=== PATIENT | male | born 1995 | race Caucasian/White ===

== ENCOUNTER 2018-06-11 09:16 | Emergency (ER) | payer MEDICAID ==
--- NOTE | 2018-06-11 11:55 | EDM.PDOC ---
ED HPI GENERAL MEDICAL PROBLEM - General Chief Complaint: ENT Problem Stated Complaint: SORE THROAT Time Seen by Provider: 06/11/18 09:36 Source of Information: Reports: Patient History Limitations: Reports: No Limitations - History of Present Illness INITIAL COMMENTS - FREE TEXT/NARRATIVE: History of present illness: []Patient has had 4 days of sore throat with chills. He has had tonsillitis in the past. Patient has no difficulty tolerating fluids, swallowing or shortness of breath or speaking. Review of systems: As per history of present illness and below otherwise all systems reviewed and negative. Past medical history: As per history of present illness and as reviewed below otherwise noncontributory. Surgical history: As per history of present illness and as reviewed below otherwise noncontributory. Social history: No reported history of drug or alcohol abuse. Family history: As per history of present illness and as reviewed below otherwise noncontributory. Physical exam: General: Well developed, well nourished in NAD HEENT: Atraumatic, normocephalic, pupils reactive, negative for conjunctival pallor or scleral icterus, mucous membranes moist, throat erythematous with white patches, symmetrical with deviation neck supple, nontender, trachea midline. No stridor Lungs: Clear to auscultation, breath sounds equal bilaterally, chest nontender. Heart: S1S2, regular, negative for clicks, rubs, or JVD. Abdomen: NABS, Soft, nondistended, nontender. Negative for masses or hepatosplenomegaly. Negative for costovertebral tenderness. Pelvis: Stable nontender. Genitourinary: Deferred. Rectal: Deferred. Extremities: Atraumatic, negative for cords or calf pain. Neurovascular unremarkable. Neuro: Awake, alert, oriented. Cranial nerves II through XII unremarkable. Cerebellum unremarkable. Motor and sensory unremarkable throughout. Exam nonfocal. Skin:warm and dry Diagnostics: Strep negative, influenza negative, Monospot negative Therapeutics: None ED Course: Stable Impression: Acute pharyngitis Prescriptions: Medrol Dosepak Plan: Take meds as directed, follow up with your primary care physician, return to ER if symptoms worsen or change. Definitive disposition and diagnosis as appropriate pending reevaluation and review of above. Throat Pain Score (Numeric/FACES): 3 - Related Data Allergies Allergy/AdvReac Type Severity Reaction Status Date / Time codeine Allergy Hives Verified 06/11/18 09:36 Home Meds: Home Meds methylPREDNISolone [Medrol] 4 mg PO ASDIRECTED #1 dosepk 06/11/18 [Rx] Past Medical History - Past Health History Medical/Surgical History: Denies Medical/Surgical History HEENT History: Reports: None Cardiovascular History: Reports: None Respiratory History: Reports: None Gastrointestinal History: Reports: None Genitourinary History: Reports: None Musculoskeletal History: Reports: None Neurological History: Reports: None Psychiatric History: Reports: None Endocrine/Metabolic History: Reports: None Hematologic History: Reports: None Immunologic History: Reports: None Oncologic (Cancer) History: Reports: None Dermatologic History: Reports: None - Infectious Disease History Infectious Disease History: Reports: None - Past Surgical History Head Surgeries/Procedures: Reports: None Male Surgical History: Reports: None Social & Family History - Family History Family Medical History: Noncontributory - Tobacco Use Smoking Status *Q: Current Every Day Smoker Years of Tobacco use: 10 Packs/Tins Daily: 0.5 - Caffeine Use Caffeine Use: Reports: None - Recreational Drug Use Recreational Drug Use: No ED ROS ENT - Review of Systems Review Of Systems: ROS reveals no pertinent complaints other than HPI. ED EXAM, ENT - Physical Exam Exam: See Below (See history of present illness) Course - Vital Signs Last Recorded V/S: Last Vital Signs Temp 97 F 06/11/18 09:35 Pulse 86 06/11/18 09:35 Resp 18 06/11/18 09:35 BP 127/61 06/11/18 09:35 Pulse Ox 97 06/11/18 09:35 - Orders/Labs/Meds Orders: Active Orders 24 hr Category Date Time Status CULTURE STREP A CONFIRMATION [RM] Stat Lab 06/11/18 07:44 Results STREP SCRN A RAPID W CULT CONF [RM] Stat Lab 06/11/18 07:44 Results Labs: Laboratory Tests 06/11/18 Range/Units 11:06 Monoscreen NEGATIVE (NEG) Departure - Departure Time of Disposition: 12:01 Disposition: Home, Self-Care 01 Condition: Good Clinical Impression: Acute pharyngitis Qualifiers: Pharyngitis/tonsillitis etiology: unspecified etiology Qualified Code(s): J02.9 - Acute pharyngitis, unspecified - Discharge Information *PRESCRIPTION DRUG MONITORING PROGRAM REVIEWED*: No *COPY OF PRESCRIPTION DRUG MONITORING REPORT IN PATIENT YAQUELIN: No Prescriptions: methylPREDNISolone [Medrol] 4 mg PO ASDIRECTED #1 dosepk Referrals: PCP,Unknown [Primary Care Provider] - Forms: ED Department Discharge Additional Instructions: The following information is given to patients seen in the emergency department who are being discharged to home. This information is to outline your options for follow-up care. We provide all patients seen in our emergency department with a follow-up referral. The need for follow-up, as well as the timing and circumstances, are variable depending upon the specifics of your emergency department visit. If you don't have a primary care physician on staff, we will provide you with a referral. We always advise you to contact your personal physician following an emergency department visit to inform them of the circumstance of the visit and for follow-up with them and/or the need for any referrals to a consulting specialist. The emergency department will also refer you to a specialist when appropriate. This referral assures that you have the opportunity for follow-up care with a specialist. All of these measure are taken in an effort to provide you with optimal care, which includes your follow-up. Under all circumstances we always encourage you to contact your private physician who remains a resource for coordinating your care. When calling for follow-up care, please make the office aware that this follow-up is from your recent emergency room visit. If for any reason you are refused follow-up, please contact the [facility] Emergency Department at and asked to speak to the emergency department charge nurse. Take meds as directed, follow up with your primary care physician, return to ER if symptoms worsen or change. [facility] [address] [place] [id number] - My Orders Last 24 Hours: My Active Orders 06/11/18 07:44 CULTURE STREP A CONFIRMATION [RM] Stat STREP SCRN A RAPID W CULT CONF [RM] Stat - Assessment/Plan Last 24 Hours: My Active Orders 06/11/18 07:44 CULTURE STREP A CONFIRMATION [RM] Stat STREP SCRN A RAPID W CULT CONF [RM] Stat
== END 2018-06-11 12:15 | disposition home or self-care (01) ==
LOC: MW.ED 09:16
DX: J02.9 Acute pharyngitis, unspecified (principal); Z88.5 Allergy status to narcotic agent; F17.210 Nicotine dependence, cigarettes, uncomplicated
CPT/HCPCS: 36415; 86308; 87081; 87804; 87880-QW; 99283

== ENCOUNTER 2018-07-03 11:09 | Emergency (ER) | payer OTHER, MEDICAID ==
[2018-07-03] MEDS ORDERED: Diphtheria,Pertussis(Acell),Tetanus Vaccine 0.5 ML Syringe IM ONE (11:13)
[2018-07-03] MEDS ORDERED: Sodium Chloride 0.9% 1,000 ML IV ONE (11:13)
[2018-07-03] MEDS ORDERED: Lidocaine 1% 10 ML MDV INJECT ONE (11:14)
--- NOTE | 2018-07-03 11:41 | CR ---
EXAMINATION: Left tibia and fibula HISTORY: Laceration COMPARISON: None TECHNIQUE: 2 views FINDINGS/IMPRESSION: There is a soft tissue laceration noted along the medial aspect of the mid calf without an acute osseous abnormality identified. Bone mineralization visualized joint spaces are grossly preserved.
[2018-07-03] MEDS ORDERED: Bacitracin Oint 1 GM U/D Packet TOP ONE (11:53)
--- NOTE | 2018-07-03 11:54 | EDM.PDOC ---
ED HPI GENERAL MEDICAL PROBLEM - General Chief Complaint: Lower Extremity Injury/Pain Stated Complaint: LT LEG INJ Time Seen by Provider: 07/03/18 11:16 Source of Information: Reports: Patient History Limitations: Reports: No Limitations - History of Present Illness INITIAL COMMENTS - FREE TEXT/NARRATIVE: HISTORY AND PHYSICAL: History of present illness: Patient is a 22-year-old male presents to the ED today with concern of a calf laceration that occurred while at work. Patient states his cast was cut with a power tool. Patient states he immediately wrapped up his leg and people from work brought him to the ED. Patient states he is not up to date on his vaccines. Patient denies any other prior injury or trauma to the leg. Patient denies head injury. Patient denies fever, chills, chest pain, shortness of breath, or cough. Denies headache, neck stiff ness, change in vision, syncope, or near syncope. Denies nausea, vomiting, abdominal pain, diarrhea, constipation, or dysuria. Has not noted any blood in urine or stool. Patient has been eating and drinking appropriately. Review of systems: As per history of present illness and below otherwise all systems reviewed and negative. Past medical history: As per history of present illness and as reviewed below otherwise noncontributory. Surgical history: As per history of present illness and as reviewed below otherwise noncontributory. Social history: See social history for further information Family history: As per history of present illness and as reviewed below otherwise noncontributory. Physical exam: General: Patient is alert, oriented, and in no acute distress. Patient laying comfortably on exam table. HEENT: Atraumatic, normocephalic, pupils equal and reactive bilaterally, negative for conjunctival pallor or scleral icterus, mucous membranes moist, TMs normal bilaterally, throat clear, neck supple, nontender, trachea midline. No drooling or trismus noted. No meningeal signs. No hot potato voice noted. Lungs: Clear to auscultation, breath sounds equal bilaterally, chest nontender. Heart: S1S2, regular rate and rhythm without overt murmur Abdomen: Soft, nondistended, nontender. Negative for masses or hepatosplenomegaly. Negative for costovertebral tenderness. Pelvis: Stable nontender. Genitourinary: Deferred. Rectal: Deferred. Skin: See extremities. Otherwise, Intact, warm, dry. No lesions or rashes noted. Extremities: Negative for cords or calf pain. Neurovascular unremarkable. There is a 5 cm laceration of the medial calf with exposed subcutaneous tissue. There is no damage to any muscle or tendons. Patient has full range of motion and strength of all joints of bilateral lower extremities. Patient had the moderate amount of blood on his close but upon arrival to the ED there has been minimal blood loss of the laceration. Capillary refill less than 2 seconds. Neuro: Awake, alert, oriented. Cranial nerves II through XII unremarkable. Cerebellum unremarkable. Motor and sensory unremarkable throughout. Exam nonfocal. Notes: Dr. Hooks was directly involved in patients care. Discussed the importance of follow-up with a primary care provider. Voices understanding and is agreeable to plan of care. Denies any further questions or concerns at this time. Diagnostics: CBC, CMP, Tib/Fib XR Therapeutics: Lidocaine, sutures, tdap, saline, bacitracin, sterile dressing Prescription: None Impression: Calf laceration Plan: 1. Keep the area clean and dry. Continue to monitor for signs of infection as discussed. Sutures to be removed in 7-10 days. 2. Tylenol and/or ibuprofen as directed and as needed for pain management and discomfort. 3. Please follow-up with your primary care provider as discussed. Return to the ED as needed and as discussed. Definitive disposition and diagnosis as appropriate pending reevaluation and review of above. - Related Data Allergies Allergy/AdvReac Type Severity Reaction Status Date / Time codeine Allergy Hives Verified 06/11/18 09:36 Home Meds: Home Meds methylPREDNISolone [Medrol] 4 mg PO ASDIRECTED #1 dosepk 06/11/18 [Rx] Past Medical History - Past Health History Medical/Surgical History: Denies Medical/Surgical History HEENT History: Reports: None Cardiovascular History: Reports: None Respiratory History: Reports: None Gastrointestinal History: Reports: None Genitourinary History: Reports: None Musculoskeletal History: Reports: None Neurological History: Reports: None Psychiatric History: Reports: None Endocrine/Metabolic History: Reports: None Hematologic History: Reports: None Immunologic History: Reports: None Oncologic (Cancer) History: Reports: None Dermatologic History: Reports: None - Infectious Disease History Infectious Disease History: Reports: None - Past Surgical History Head Surgeries/Procedures: Reports: None Male Surgical History: Reports: None Social & Family History - Family History Family Medical History: Noncontributory - Caffeine Use Caffeine Use: Reports: None Review of Systems - Review of Systems Review Of Systems: ROS reveals no pertinent complaints other than HPI. ED EXAM, GENERAL - Physical Exam Exam: See Below (See dictation) ED TRAUMA EXTREMITY PROCEDURES - Laceration/Wound Repair Left Medial Leg Lac/Wound Length In cm: 5 Appearance: Subcutaneous, Linear, Clean Distal NVT: Neuro & Vascular Intact, No Tendon Injury Anesthetic Type: Local Local Anesthesia - Lidocaine (Xylocaine): 1% Plain Local Anesthetic Volume: Other (10) Skin Prep: Chlorhexidine (Hibiciens), Providone-Iodine (Betadine) Saline Irrigation (cc's): 25 Exploration/Debridement/Repair: Wound Explored, In a Bloodless Field, Explored to Base, No Foreign Material Found Closed With: Sutures Suture Size: 4-0 # of Sutures: 8 Suture Type: Nylon, Interrupted Drain Placement: No Sterile Dressing Applied: Nurse Tetanus Status Addressed: Yes Complications: No Course - Orders/Labs/Meds Orders: Active Orders 24 hr Category Date Time Status Vaccines to be Administered [RC] PER UNIT ROUTINE Care 07/03/18 11:13 Active COMPREHENSIVE METABOLIC PN,CMP [CHEM] Stat Lab 07/03/18 11:05 Received Sodium Chloride 0.9% [Normal Saline] 1,000 ml Med 07/03/18 11:13 Active IV STAT Medication Orders Sodium Chloride (Normal Saline) 1,000 mls @ 999 mls/hr IV STAT ONE Stop: 07/03/18 12:13 Last Admin: 07/03/18 11:20 Dose: 999 mls/hr Labs: Laboratory Tests 07/03/18 Range/Units 11:05 WBC 7.03 (4.0-11.0) K/uL RBC 4.92 (4.50-5.90) M/uL Hgb 16.3 (13.0-17.0) g/dL Hct 46.9 (38.0-50.0) % MCV 95.3 (80.0-98.0) fL MCH 33.1 H (27.0-32.0) pg MCHC 34.8 (31.0-37.0) g/dL RDW Std Deviation 45.8 (28.0-62.0) fl RDW Coeff of Ashlie 13 (11.0-15.0) % Plt Count 238 (150-400) K/uL MPV 11.00 (7.40-12.00) fL Neut % (Auto) 56.9 (48.0-80.0) % Lymph % (Auto) 34.4 (16.0-40.0) % Campbell % (Auto) 6.3 (0.0-15.0) % Eos % (Auto) 1.8 (0.0-7.0) % Baso % (Auto) 0.6 (0.0-1.5) % Neut # (Auto) 4.0 (1.4-5.7) K/uL Lymph # (Auto) 2.4 (0.6-2.4) K/uL Campbell # (Auto) 0.4 (0.0-0.8) K/uL Eos # (Auto) 0.1 (0.0-0.7) K/uL Baso # (Auto) 0.0 (0.0-0.1) K/uL Nucleated RBC % 0.0 /100WBC Nucleated RBCs # 0 K/uL Meds: Medications Generic Name Dose Route Start Last Admin Trade Name Freq PRN Reason Stop Dose Admin Sodium Chloride 1,000 mls @ 999 mls/hr 07/03/18 11:13 07/03/18 11:20 Normal Saline IV 07/03/18 12:13 999 mls/hr STAT ONE Administration Discontinued Medications Generic Name Dose Route Start Last Admin Trade Name Freq PRN Reason Stop Dose Admin Bacitracin 1 dose 07/03/18 11:53 Bacitracin Oint 1 Gm TOP 07/03/18 11:54 ONETIME ONE Diphtheria/Tetanus/Acell Pertussis 0.5 ml 07/03/18 11:13 07/03/18 11:20 Adacel IM 07/03/18 11:14 0.5 ml .ONCE ONE Administration Lidocaine HCl Confirm 07/03/18 11:21 07/03/18 12:01 Xylocaine-Mpf 1% Administered 07/03/18 11:22 Not Given Dose 10 mls @ as directed .ROUTE .STK-MED ONE Lidocaine HCl 10 ml 07/03/18 11:14 07/03/18 12:01 Xylocaine 1% INJECT 07/03/18 11:15 10 ml ONETIME ONE Administration Departure - Departure Time of Disposition: 11:56 Disposition: Home, Self-Care 01 Clinical Impression: Laceration of calf Qualifiers: Encounter type: initial encounter Laterality: left Qualified Code(s): S81.812A - Laceration without foreign body, left lower leg, initial encounter - Discharge Information Instructions: Laceration Care, Adult, [id number] Referrals: PCP,None [Primary Care Provider] - Forms: ED Department Discharge Additional Instructions: The following information is given to patients seen in the emergency department who are being discharged to home. This information is to outline your options for follow-up care. We provide all patients seen in our emergency department with a follow-up referral. The need for follow-up, as well as the timing and circumstances, are variable depending upon the specifics of your emergency department visit. If you don't have a primary care physician on staff, we will provide you with a referral. We always advise you to contact your personal physician following an emergency department visit to inform them of the circumstance of the visit and for follow-up with them and/or the need for any referrals to a consulting specialist. The emergency department will also refer you to a specialist when appropriate. This referral assures that you have the opportunity for follow-up care with a specialist. All of these measure are taken in an effort to provide you with optimal care, which includes your follow-up. Under all circumstances we always encourage you to contact your private physician who remains a resource for coordinating your care. When calling for follow-up care, please make the office aware that this follow-up is from your recent emergency room visit. If for any reason you are refused follow-up, please contact the [facility] Emergency Department at and asked to speak to the emergency department charge nurse. [facility] [address] [place] [address] [id number] [address] [id number] 1. Keep the area clean and dry. Continue to monitor for signs of infection as discussed. Sutures to be removed in 7-10 days. 2. Tylenol and/or ibuprofen as directed and as needed for pain management and discomfort. 3. Please follow-up with your primary care provider as discussed. Return to the ED as needed and as discussed. - My Orders Last 24 Hours: My Active Orders 07/03/18 11:05 COMPREHENSIVE METABOLIC PN,CMP [CHEM] Stat 07/03/18 11:13 Vaccines to be Administered [RC] PER UNIT ROUTINE Sodium Chloride 0.9% [Normal Saline] 1,000 ml IV STAT - Assessment/Plan Last 24 Hours: My Active Orders 07/03/18 11:05 COMPREHENSIVE METABOLIC PN,CMP [CHEM] Stat 07/03/18 11:13 Vaccines to be Administered [RC] PER UNIT ROUTINE Sodium Chloride 0.9% [Normal Saline] 1,000 ml IV STAT
[2018-07-03 12:19] LABS: CHLORIDE,CL 102 mmol/L (98-107); SODIUM,NA 139 mmol/L (136-148)
== END 2018-07-03 12:21 | disposition home or self-care (01) ==
LOC: MW.ED 11:09
DX: S81.812A Laceration without foreign body, left lower leg, initial encounter (principal); Z23 Encounter for immunization; W26.8XXA Contact with other sharp object(s), not elsewhere classified, initial encounter; Y99.0 Civilian activity done for income or pay
CPT/HCPCS: 12002; 36415; 73590; 80053; 85025; 90471; 90715; 96360; 99283; J2001; J7040

== ENCOUNTER 2018-07-09 19:31 | Emergency (ER) | payer MEDICAID, OTHER ==
--- NOTE | 2018-07-09 20:57 | EDM.PDOC ---
ED HPI GENERAL MEDICAL PROBLEM - General Chief Complaint: Wound Recheck Stated Complaint: STITCHES REMOVED Time Seen by Provider: 07/09/18 20:55 Source of Information: Reports: Patient - History of Present Illness INITIAL COMMENTS - FREE TEXT/NARRATIVE: HISTORY AND PHYSICAL: History of present illness: [Patient presents with a suture removal/wound check where he had nicked his left lower extremity with a bone grinder resulting in approximately a 6 cm laceration which is clean dry intact no redness warmth or exudative drainage Since he has developed a limp due to pain with weightbearing and some swelling around his left ankle he is tender over the lateral malleolus denies any new injury or trauma entire limb is neurovascularly intact No fever nausea vomiting chills sweats Review of systems: As per history of present illness and below otherwise all systems reviewed and negative. Past medical history: As per history of present illness and as reviewed below otherwise noncontributory. Surgical history: As per history of present illness and as reviewed below otherwise noncontributory. Social history: No reported history of drug or alcohol abuse. Family history: As per history of present illness and as reviewed below otherwise noncontributory. Physical exam: HEENT: Atraumatic, normocephalic, pupils reactive, negative for conjunctival pallor or scleral icterus, mucous membranes moist, throat clear, neck supple, nontender, trachea midline. Lungs: Clear to auscultation, breath sounds equal bilaterally, chest nontender. Heart: S1S2, regular, negative for clicks, rubs, or JVD. Abdomen: Soft, nondistended, nontender. Negative for masses or hepatosplenomegaly. Negative for costovertebral tenderness. Pelvis: Stable nontender. Genitourinary: Deferred. Rectal: Deferred. Extremities: Atraumatic, negative for cords or calf pain. Neurovascular unremarkable. Left lower extremity as per history of present illness otherwise unremarkable Neuro: Awake, alert, oriented. Cranial nerves II through XII unremarkable. Cerebellum unremarkable. Motor and sensory unremarkable throughout. Exam nonfocal. Diagnostics: [] left ankle 3 views Left foot 2 views Therapeutics: [Standard wound care sutures out in 4 more days ] Impression: Laceration day 6 [ medical screening exam Left ankle pain ] Definitive disposition and diagnosis as appropriate pending reevaluation and review of above. Left Ankle Pain Score (Numeric/FACES): 4 - Related Data Allergies Allergy/AdvReac Type Severity Reaction Status Date / Time codeine Allergy Hives Verified 07/09/18 19:57 Home Meds: Home Meds . [No Known Home Meds] 07/03/18 [History] Past Medical History - Past Health History Medical/Surgical History: Denies Medical/Surgical History HEENT History: Reports: None Cardiovascular History: Reports: None Respiratory History: Reports: None Gastrointestinal History: Reports: None Genitourinary History: Reports: None Musculoskeletal History: Reports: None Neurological History: Reports: None Psychiatric History: Reports: None Endocrine/Metabolic History: Reports: None Hematologic History: Reports: None Immunologic History: Reports: None Oncologic (Cancer) History: Reports: None Dermatologic History: Reports: None - Infectious Disease History Infectious Disease History: Reports: None - Past Surgical History Head Surgeries/Procedures: Reports: None Male Surgical History: Reports: None Social & Family History - Family History Family Medical History: Noncontributory - Tobacco Use Smoking Status *Q: Current Every Day Smoker Years of Tobacco use: 9 Packs/Tins Daily: 1 - Caffeine Use Caffeine Use: Reports: Energy Drinks - Recreational Drug Use Recreational Drug Use: No ED ROS GENERAL - Review of Systems Review Of Systems: See Below ED EXAM, GENERAL - Physical Exam Exam: See Below Course - Vital Signs Last Recorded V/S: Last Vital Signs Temp 97.1 F 07/09/18 19:57 Pulse 91 07/09/18 19:57 Resp 18 07/09/18 19:57 BP 139/78 07/09/18 19:57 Pulse Ox 96 07/09/18 19:57 - Orders/Labs/Meds Orders: Active Orders 24 hr Category Date Time Status Ankle Min 3V Lt [CR] Stat Exams 07/09/18 20:55 Taken Foot 2V Lt [CR] Stat Exams 07/09/18 20:55 Taken Departure - Departure Time of Disposition: 22:22 Disposition: Home, Self-Care 01 Condition: Good Clinical Impression: Encounter for medical screening examination - Discharge Information Referrals: PCP,None [Primary Care Provider] - Forms: ED Department Discharge Additional Instructions: Continue standard wound care as gas Return if symptoms persist or worsen Sutures out at the 10 day criss The following information is given to patients seen in the emergency department who are being discharged to home. This information is to outline your options for follow-up care. We provide all patients seen in our emergency department with a follow-up referral. The need for follow-up, as well as the timing and circumstances, are variable depending upon the specifics of your emergency department visit. If you don't have a primary care physician on staff, we will provide you with a referral. We always advise you to contact your personal physician following an emergency department visit to inform them of the circumstance of the visit and for follow-up with them and/or the need for any referrals to a consulting specialist. The emergency department will also refer you to a specialist when appropriate. This referral assures that you have the opportunity for follow-up care with a specialist. All of these measure are taken in an effort to provide you with optimal care, which includes your follow-up. Under all circumstances we always encourage you to contact your private physician who remains a resource for coordinating your care. When calling for follow-up care, please make the office aware that this follow-up is from your recent emergency room visit. If for any reason you are refused follow-up, please contact the [facility] emergency department at and asked to speak to the emergency department charge nurse. - My Orders Last 24 Hours: My Active Orders 07/09/18 20:55 Ankle Min 3V Lt [CR] Stat Foot 2V Lt [CR] Stat - Assessment/Plan Last 24 Hours: My Active Orders 07/09/18 20:55 Ankle Min 3V Lt [CR] Stat Foot 2V Lt [CR] Stat
--- NOTE | 2018-07-09 22:28 | CR ---
Indication: Pain and swelling Technique: Three views of the left ankle Comparison: None available Findings: Bones: Alignment is normal. No fractures or bone lesions. Joint spaces: Unremarkable. Soft tissues: Slight soft tissue swelling. Impression: No acute fracture or dislocation. Dictated by Sg Mo MD @ 07/09/2018 10:27:00 PM Dictated by: Sg Mo MD @ 07/09/2018 22:27:08 (Electronically Signed)
--- NOTE | 2018-07-09 22:29 | CR ---
Indication: Pain and swelling Technique: Two views of the left foot Comparison: None available Findings: Bones: Alignment is normal. No fractures or bone lesions. Joint spaces: Unremarkable. Soft tissues: Unremarkable. Impression: Negative. Dictated by Sg Mo MD @ 07/09/2018 10:28:50 PM Dictated by: Sg Mo MD @ 07/09/2018 22:28:59 (Electronically Signed)
== END 2018-07-09 22:32 | disposition home or self-care (01) ==
LOC: MW.ED 19:31
DX: S81.812D Laceration without foreign body, left lower leg, subsequent encounter (principal); W26.8XXD Contact with other sharp object(s), not elsewhere classified, subsequent encounter
CPT/HCPCS: 73610-26-LT; 73610-LT; 73620-26-LT; 73620-LT; 99282; 99283-25

== ENCOUNTER 2018-07-16 19:50 | Emergency (ER) | payer MEDICAID | END 2018-07-16 21:50 | disposition left against medical advice (07) | LOC: MW.ED 19:50 | DX: Z53.21 Procedure and treatment not carried out due to patient leaving prior to being seen by health care provider (principal) ==

== ENCOUNTER 2018-08-26 04:24 | Emergency (ER) | payer MEDICAID ==
[2018-08-26] MEDS ORDERED: Ondansetron 4 MG/2 ML SDV IVPUSH ONE (04:30)
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
[2018-08-26 04:55] LABS: CHLORIDE,CL 105 mmol/L (98-107); SODIUM,NA 141 mmol/L (136-148)
[2018-08-26] MEDS ORDERED: Ketorolac 30 MG/ML SDV IVPUSH ONE (04:55)
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
[2018-08-26] MEDS ORDERED: Lactated Ringers 1,000 ML IV SCH (07:45)
== END 2018-08-26 07:20 ==
LOC: MW.ED 04:24
DX: T22.00XA Burn of unspecified degree of shoulder and upper limb, except wrist and hand, unspecified site, initial encounter (principal); T25.021A Burn of unspecified degree of right foot, initial encounter; T31.0 Burns involving less than 10% of body surface; X04.XXXA Exposure to ignition of highly flammable material, initial encounter; Z88.5 Allergy status to narcotic agent
CPT/HCPCS: 71045; 80053; 85025; 96361; 96374; 96375; 99285; J1885; J2405; J7120

== ENCOUNTER 2018-09-25 22:30 | Emergency (ER) | payer MEDICAID, OTHER ==
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
[2018-09-25] MEDS ORDERED: cefTRIAXone 1 GM Vial IM ONE (22:41)
[2018-09-25] MEDS ORDERED: Lidocaine 1% PF 2 ML SDV INJECT ONE (22:46)
[2018-09-25] MEDS: Lidocaine 1% PF 2 ML SDV INJECT ONE (22:54)
== END 2018-09-25 23:01 | disposition home or self-care (01) ==
LOC: MW.ED 22:30
DX: S00.81XA Abrasion of other part of head, initial encounter (principal); K13.0 Diseases of lips; W50.3XXA Accidental bite by another person, initial encounter
CPT/HCPCS: 96372; 99283; J0696; J2001